=== PATIENT | female | born 1995 | race Caucasian/White ===

== ENCOUNTER → 2017-05-12 | Outpatient (CLI) | payer BC ==
--- NOTE | 2017-05-12 14:05 | US ---
EXAMINATION TYPE: US thyroid st tissue head/neck DATE OF EXAM: 05/12/2017 COMPARISON: NONE CLINICAL HISTORY: E04.0 Nontoxic Goiter. Goiter GLAND SIZE: Right Lobe: 4.9 x 2.1 x 2.3 cm Overall Parenchyma: homogenous Left Lobe: 5.1 x 1.2 x 1.1 cm Overall Parenchyma: homogeneous Isthmus Thickness: 0.3 cm NODULES RIGHT: # of nodules measured on right: 1 1. 3.0 X 1.8 x 2.3 cm isoechoic mixed nodule at the mid pole with well-defined margins; . This nod ule is taller than wide and shows intranodular vascularity. Prior size: no prior LEFT: # of nodules measured on left: 0 ISTHMUS: # of nodules measured in the isthmus: 0 Bilateral neck scanned, multiple lymph nodes noted bilaterally. Single nodule right thyroid lobe IMPRESSION: Dominant 3.0 cm right thyroid isoechoic well-defined nodule with vascularity, greater solid and cysti c component. Ultrasound guided fine-needle aspiration advised to rule out malignancy.
== END | disposition home or self-care (01) ==
LOC: RADUSWWP 13:00
PROVIDERS: ATTEND Family Medicine
DX: E04.1 Nontoxic single thyroid nodule (principal)
CPT/HCPCS: 76536